=== PATIENT | female | born 1945 | race Hispanic/Latino ===

== ENCOUNTER 2017-05-23 11:04 | Emergency (ER) | payer MEDICARE, BC ==
[2017-05-23 11:09] VITALS: TEMP 97.8; BMI 32.8
--- NOTE | 2017-05-23 12:12 | ED PDOC ---
Upper Extremity Pain/Injury Time Seen by Provider: 05/23/17 11:23 Chief Complaint (Nursing): Upper Extremity Problem/Injury Chief Complaint (Provider): Neck Pain History Per: Patient History/Exam Limitations: no limitations Current Symptoms Are (Timing): Still Present Additional Complaint(s): Shelby Stevens, a 71 year old female,who has a past medical history of hypertension presents to the ED with neck stiffness and pain. The patient states that on Wednesday she went for a haircut then came back home and fell asleep on her recliner. She reports that when she woke up she had a funny feeling in her neck but disregarded it. The patient reports that she woke up yesterday morning and she could not move her neck and also could not swallow. She also states that the neck pain radiates from the right side of her neck to her right ear. She states that she tried using a heating pad, ibuprofen and tylenol to relieve the pain but nothing worked. The patient said that upon arrival to the ED her blood pressure was 205/96. Of Note: Patient states that she recently started new medication: Prilosec 40mg Twice a day. Past Medical History Reviewed: Historical Data, Nursing Documentation, Vital Signs Vital Signs: Last Vital Signs Temp 97.8 F 05/23/17 11:06 Pulse 82 05/23/17 11:06 Resp 20 05/23/17 11:06 BP 205/93 H 05/23/17 11:06 Pulse Ox 95 05/23/17 11:06 - Medical History PMH: Arthritis, Hiatal Hernia, HTN - Surgical History Surgical History: Cholecystectomy - Family History Family History: States: Unknown Family Hx - Home Medications Home Medications: Ambulatory Orders Medication Instructions Recorded Aspirin [Low Dose Aspirin EC] 81 mg PO DAILY 01/19/16 Cholecalciferol (Vitamin D3) [Good 1 tab PO QWK 01/19/16 [facility] Health D 90 mg] Cilostazol [Pletal] 50 mg PO DAILY 01/19/16 Dexlansoprazole [Dexilant] 60 mg PO DAILY 01/19/16 Meloxicam [Mobic] 15 mg PO DAILY 01/19/16 Nebivolol HCl [Bystolic] 5 mg PO DAILY 01/19/16 Valsartan [Diovan] 160 mg PO CONT 01/19/16 cloNIDine 0.1 mg/24 hr [catapres 1 patch TD QWK 01/19/16 TTS1] hydroCHLOROthiazide [Hydrodiuril] 25 mg PO DAILY 01/19/16 Cyclobenzaprine [Cyclobenzaprine 10 mg PO TID #20 tab 05/23/17 HCl] Naproxen [Naprosyn] 500 mg PO BID PRN #20 tablet 05/23/17 - Allergies Allergies/Adverse Reactions: Allergies Allergy/AdvReac Type Severity Reaction Status Date / Time ciprofloxacin [From Cipro] Allergy NAUSEA Verified 05/23/17 11:19 ciprofloxacin HCl Allergy NAUSEA Verified 05/23/17 11:19 [From Cipro] Review of Systems ROS Statement: Except As Marked, All Systems Reviewed And Found Negative ENT: Positive for: Throat Pain Musculoskeletal: Positive for: Neck Pain (Neck pain and stiffness) Physical Exam - Reviewed Nursing Documentation Reviewed: Yes Vital Signs Reviewed: Yes - Physical Exam Appears: Positive for: Non-toxic, No Acute Distress Head Exam: Positive for: ATRAUMATIC, NORMAL INSPECTION, NORMOCEPHALIC Skin: Positive for: Normal Color, Warm, Dry Eye Exam: Positive for: Normal appearance, EOMI, PERRL ENT: Positive for: Normal ENT Inspection Neck: Positive for: Supple, Limited ROM (Limited ROM secondary to pain), Pain On Movement Of Neck. Negative for: Normal Cardiovascular/Chest: Positive for: Regular Rate, Rhythm, Chest Non Tender. Negative for: Tachycardia Respiratory: Positive for: Normal Breath Sounds. Negative for: Wheezing, Respiratory Distress Gastrointestinal/Abdominal: Positive for: Normal Exam, Bowel Sounds, Soft. Negative for: Tenderness, Guarding, Rebound Back: Positive for: Normal Inspection Extremity: Positive for: Normal ROM. Negative for: Tenderness, Pedal Edema, Deformity, Swelling Neurologic/Psych: Positive for: Alert, Oriented, Gait - ECG O2 Sat by Pulse Oximetry: 95 (RA) Pulse Ox Interpretation: Normal - Progress Re-evaluation Time: 13:45 Condition: Re-examined, Improved Medical Decision Making Medical Decision Makin Initial Impression: 71 year old female presents with neck pain and stiffness Initial Plan: * RAD Cervical Spine Complete * Toradol 60mg IM * Valium 5mg PO * RAD Cervical Spine AP & LAT * Reevaluation Scribe Attestation Documented by Nadine Isaacs acting as a scribe for Kaye Ríos MD. Provider Attestation: All medical record entries made by the Scribe were at my direction and personally dictated by me. I have reviewed the chart and agree that the record accurately reflects my personal performance of the history, physical exam, medical decision making, and the department course for this patient. I have also personally directed, reviewed, and agree with the discharge instructions and disposition. Disposition - Clinical Impression Clinical Impression: Muscle spasm - Patient ED Disposition Is Patient to be Admitted: No Doctor Will See Patient In The: Office - Disposition Referrals: Ferny Stratton MD [Family Provider] - Disposition: Routine/Home Disposition Time: 14:07 Condition: IMPROVED Prescriptions: Cyclobenzaprine [Cyclobenzaprine HCl] 10 mg PO TID #20 tab Naproxen [Naprosyn] 500 mg PO BID PRN #20 tablet PRN Reason: Pain, Moderate (4-7) Instructions: Muscle Spasm (ED) Forms: [facility] (Nepali) - POA Present On Arrival: None
[2017-05-23 12:38] VITALS: BP 157/85; PULSE 73; RESP 16
[2017-05-23 14:10] VITALS: O2SAT 95
--- NOTE | 2017-05-23 15:12 | RAD ---
PROCEDURE: Cervical Spine Radiographs. Multiple views of the cervical spine performed. Note that the examination is limited due to partial obscuration of the the tip of the odontoid by overlying occiput in the open-mouth projection. Study is further limited due incomplete visualization of the lower cervical spine; inferior margin of C6 and C7 not seen on lateral projection and poorly visualized on swimmer's view HISTORY: Pain. COMPARISON: None. FINDINGS: BONES: Current study reveals no evidence of acute displaced fracture nor dislocation. There appears to be flexion at the cervicothoracic junction and straightening of the normal cervical lordosis. Findings could be due to muscle spasm. Vertebral bodies otherwise exhibit relatively normal alignment. Facets normally aligned. Degenerative DISC SPACES: Degenerative disc space narrowing noted at the C5-C6 level. The prominent anterior and smaller posterior osteophyte formation. Small early osteophyte formation noted at the C4-C5 and to a lesser degree C3-C4 levels. SOFT TISSUES: Normal. No prevertebral soft tissue swelling. OTHER FINDINGS: None. IMPRESSION: Limited study as described. No fracture. . Apparent flexion at at the cervical thoracic junction with straightening of the normal cervical lordosis. Findings could be due to spasm. Consider followup CT scan if further evaluation is required.
== END 2017-05-23 14:17 | disposition home or self-care (01) ==
LOC: H.ER 11:04
DX: M62.838 Other muscle spasm (principal); I10 Essential (primary) hypertension
CPT/HCPCS: 72040; 96372; 99282; J1885

== ENCOUNTER 2017-10-20 10:27 | Day surgery (SDC) | payer MEDICARE, BC ==
[2017-10-20 11:07] VITALS: BMI 32.4
[2017-10-20] MEDS ORDERED: Lactated Ringer's 1,000 ML IV ONE (11:28)
[2017-10-20] MEDS ORDERED: methylPREDNISolone Depo 80 mg/ml Inj ONE (12:23)
[2017-10-20] MEDS ORDERED: MethylPREDNISolone Depo 40 mg/ml Inj ONE (12:23)
[2017-10-20] MEDS ORDERED: Iohexol 300 10 ML ONE (12:24)
[2017-10-20] MEDS ORDERED: Propofol 10 mg/ml Inj (20 ML) ONE (12:24)
[2017-10-20] MEDS ORDERED: Lidocaine 2% MPF (5 ml) Inj ONE (12:24)
[2017-10-20] MEDS ORDERED: Lidocaine 1% Inj (20ml) ONE (12:25)
[2017-10-20] MEDS: Bupivacaine HCl 0.25% PF (10 ml) Inj ONE ×3 (12:40→12:47)
[2017-10-20 15:08] VITALS: RESP 18; O2SAT 98
[2017-10-20 15:57] VITALS: BP 140/76; PULSE 65; TEMP 98
--- NOTE | 2017-10-20 16:14 | RAD ---
PROCEDURE: Lumbar epidural steroid injection HISTORY: PAIN MANAGEMENT COMPARISON: None TECHNIQUE: Standard protocol for this study/examination. FINDINGS: Submitted images from the current procedure: 3.0. Total fluoroscopic time (continuous mode) utilized during the procedure: 12.8 seconds. Total exam DLP: (mGy): 5.59. IMPRESSION: Less than 1 hr fluoroscopic time utilized during performance of the procedure.
--- NOTE | 2017-10-21 00:32 | OP ---
PROCEDURE DATE: 10/20/2017 PREOPERATIVE DIAGNOSES: Lumbar radiculopathy and paresthetica meralgia on the left. PROCEDURE: L5 through S1 interlaminar epidural steroid injection and left lateral femoral cutaneous nerve block with ultrasound. ANESTHESIOLOGIST: Dr. Roblero. SURGEON: Sharonda Jurado MD. TYPE OF ANESTHESIA: Monitored anesthesia care. COMPLICATIONS: None. SPECIMEN: None. DESCRIPTION OF PROCEDURE: After we had a discussion of the procedure with the patient including its risks, benefits, alternatives, outcome data, possibility of no effects or increased pain, the patient consented to the procedure. She denied any recent infections, bleeding tendencies or being on anticoagulants. The decision was then made to proceed to the OR. The patient was placed on a fluoroscopy table in a prone position with 2 pillows underneath her abdomen. The back was prepped and draped in the usual sterile fashion and sterile technique was adhered to during the entire procedure. The L5-S1 interlaminar space was first identified in the anterior and posterior view. Cephalad angulation was used to open up the interlaminar space. The skin overlying this area was infiltrated with 1% lidocaine using a 25-gauge needle. Subsequently, a 20-gauge 3.5-inch spinal needle was then incrementally advanced under fluoroscopic guidance using loss of resistance technique. The epidural space was reached at approximately 7.5 cm depth. This was confirmed on the lateral fluoroscopy view. After appropriate placement of the needle, approximately 1 mL of Isovue contrast was injected showing appropriate epidural and nerve root spread without any signs of CSF or intravenous involvement. At this point, approximately 5 mL of 0.25% Marcaine and Depo-Medrol mixture was injected. The needle was then removed. The patient was then transported onto the stretcher in a supine position. The left groin was then prepped and draped in the usual sterile fashion and sterile technique was adhered to during the entire procedure. The left femoral lateral cutaneous nerve is located at the lateral border of the sartorius muscle which was visualized on the ultrasound. The probe was then worked slightly laterally until the lateral femoral cutaneous nerves came into view. At this point, a 22-gauge, 3.5-inch spinal needle was introduced lateral to the probe towards the lateral femoral cutaneous nerve. The needle was placed next to the nerve. After negative aspiration, approximately 6 mL of 0.25% Marcaine and Depo-Medrol mixture was injected. The needle was then removed and the patient's left groin was then cleaned and dried, bandage were applied. The patient was then transferred to the recovery area in good conditions without any signs of DIRECTOR SOFTWARE toxicity or any neurological deficit. She will have a followup in the office in approximately 2 to 4 weeks. En-Collin Jurado MD
== END 2017-10-20 15:50 | disposition home or self-care (01) ==
LOC: H.OPSURG 10:27
PROVIDERS: ATTEND Anesthesiology
DX: M54.16 Radiculopathy, lumbar region (principal); I10 Essential (primary) hypertension
CPT/HCPCS: 62323; 64483; J1030; J1040; J2704; J7120; Q9967

== ENCOUNTER 2019-01-06 09:02 | Day surgery (SDC) | payer MEDICARE, BC ==
[2019-01-05 13:40] VITALS: BMI 32.3
[2019-01-06] MEDS ORDERED: Lactated Ringer's 1,000 ML IV ONE (09:38)
--- NOTE | 2019-01-06 10:27 | CP.SDSHP ---
Same Day Surgery H & P - History Proposed Procedure: Lumbar epidural steroid injection Pre-Op Diagnosis: Lumbar spinal stenosis - Allergies Allergies: Allergies ciprofloxacin [From Cipro] Allergy (Verified 05/23/17 11:19) NAUSEA ciprofloxacin HCl [From Cipro] Allergy (Verified 05/23/17 11:19) NAUSEA - Physical Exam Vital Signs: Vital Signs 01/06/19 09:44 Temperature 97.5 F L Pulse Rate 58 L Respiratory 98 H Rate Blood Pressure 139/57 L O2 Sat by Pulse 18 L Oximetry Neuro: WNL Heart: WNL Lungs: WNL GI: WNL - Impression Impression: Lumbar spinal stenosis Pt. Evaluated Today:Candidate for Anesthesia & Procedure: Yes Short Stay Discharge - Short Stay Discharge Admitting Diagnosis/Reason for Visit: M48.06 Disposition: HOME/ ROUTINE Referrals: Ferny Stratton MD [Primary Care Provider] -
[2019-01-06] MEDS ORDERED: Bupivacaine HCl 0.25% PF (30 ml) Inj ONE (10:32)
[2019-01-06] MEDS ORDERED: methylPREDNISolone Depo 80 mg/ml Inj ONE (10:32)
[2019-01-06] MEDS ORDERED: Iohexol 300 10 ML ONE (10:33)
[2019-01-06] MEDS ORDERED: Propofol 10 mg/ml Inj (20 ML) ONE (10:39)
[2019-01-06] MEDS ORDERED: Lidocaine 1% 5ml Abboject ONE (10:39)
[2019-01-06] MEDS ORDERED: Lactated Ringer's 1,000 ML IV SCH (11:00)
[2019-01-06 12:23] VITALS: RESP 18; TEMP 97.6; O2SAT 98
[2019-01-06 12:47] VITALS: BP 132/76; PULSE 58
--- NOTE | 2019-01-06 15:52 | RAD ---
Date of service: 01/06/2019 PROCEDURE: Fluoroscopy up to 1 hr. HISTORY: PAIN MANAGEMENT COMPARISON: None TECHNIQUE: Standard protocol for this study/examination. FINDINGS: Total fluoroscopic time (continuous mode) utilized during the procedure 42.3 seconds. Total exam DLP: 22.69 (mGy). IMPRESSION: Less than 1 hr fluoroscopic assistance provided during performance of the procedure.
--- NOTE | 2019-01-06 22:59 | OP ---
PROCEDURE DATE: 01/06/2019 PREOPERATIVE DIAGNOSIS: Lumbar spondylosis. POSTOPERATIVE DIAGNOSIS: Lumbar spondylosis. PROCEDURE: L5-S1 interlaminar epidural steroid injection and right L4-L5 medial branch nerve blocks. ANESTHESIOLOGIST: Ferny Holbrook MD SURGEON: Sharonda Jurado MD TYPE OF ANESTHESIA: Monitored anesthesia care. COMPLICATIONS: None. SPECIMEN: None. DESCRIPTION OF PROCEDURE: After we had a discussion of the procedure with the patient including its risks, benefits, alternatives, outcome data, possibility of no effect or increased pain, the patient consented to the procedure. She denies any recent infection, bleeding tendencies, or being on anticoagulants. Decision was then made to proceed to the OR. The patient was placed on the fluoroscopy table in a prone position with two pillows underneath her abdomen. The back was prepped and draped in the usual sterile fashion and a sterile technique was adhered to during the entire procedure. The L5-S1 interlaminar space was first identified in the anteroposterior view. The skin overlying this area was then infiltrated with 1% lidocaine using a 25-gauge needle. Subsequently, a 20-gauge 3.5-inch Tuohy needle was incrementally advanced under fluoroscopic guidance using loss of resistance technique. The epidural space was reached at approximately 8.5 cm depth. Under lateral fluoroscopy view, approximately 1 mL of Isovue contrast was injected showing appropriate epidural spread. At this point, approximately 5 mL of normal saline and Depo-Medrol mixture was injected. The needle was then removed. Then, the right L4 and L5 medial branch nerves were targeted by turning the fluoroscopy towards the right at approximately 15 degrees. The nerves were located at the intersection of the superior articular process and the transverse process of the L4 and L5 pedicles. The skin overlying the two above targeted areas was then infiltrated with 1% lidocaine using 25-gauge needle. Subsequently, a 22-gauge 3.5-inch spinal needle was then incrementally advanced under fluoroscopic guidance until tip of the needle made bony contact with both of the targets. After satisfactory positioning of both needles, approximately 3 mL of 0.25% Marcaine and Depo-Medrol mixture was injected. The needle was then removed, the patient's back was cleaned, and dry bandage was applied. The patient was then transferred to recovery area in good condition without any signs of AMUSEMENT RIDE OPERATOR toxicity or any neurological deficit. She will be following up in our office in approximately two to four weeks. Sharonda Jurado MD [facility] # [id number]
== END 2019-01-06 13:00 | disposition home or self-care (01) ==
LOC: H.OPSURG 09:02
PROVIDERS: ATTEND Anesthesiology
DX: M47.816 Spondylosis without myelopathy or radiculopathy, lumbar region (principal); M48.061 Spinal stenosis, lumbar region without neurogenic claudication; Z88.1 Allergy status to other antibiotic agents
CPT/HCPCS: 62323; J1040; J2704; J7120; Q9967